=== PATIENT | male | born 1970 | race Caucasian/White ===

== ENCOUNTER 2017-10-29 21:00 | Emergency (ER) | payer OTHER ==
[~2017-10-29 21:00] MED LIST: BENICAR HCT 201 EACH PO; JANUMET 50-1,01 EACH PO; ZOLOFT50 MG PO
== END 2017-10-29 21:47 | disposition short-term general hospital (02) ==
LOC: ER 21:00
DX: M25.529 Pain in unspecified elbow (principal)